=== PATIENT | female | born 1965 | race African-American/Black ===

== ENCOUNTER 2018-12-31 20:40 | Emergency (ER) | payer SELFPAY ==
[~2018-12-31] VITALS: Ht 175.3 cm; Wt 86.2 kg
--- NOTE | 2018-12-31 20:44 | NUR ---
ED Nurse Note: pt brought in by [facility] from home c/o allergic reaction, pt reports she ate some pineapple and drank aguirre juice and started feeling itching, swelling in throat, fingers and face, and feels like ants crawling in her head. EMS gave epi and benadryl 50mg on field, EMS reports pt was better for a little bit but started feeling worse again. Noted pt restless, AA&ox4, gcs=15, skin warm and dry, no hives nor rash noted, airway intact, resp even and unlabored on RA, sat 100%, noted tachypnea, -n/v/d. report given to Mireya.
[2018-12-31] MEDS ORDERED: Solu-MEDROL 125mg Inj IVP ONE (20:45)
[2018-12-31 20:47] VITALS: BP 168/83
--- NOTE | 2018-12-31 20:51 | Emergency Room Report ---
History of Present Illness General Chief Complaint: Allergic Reaction Source: Patient, EMS Present Illness HPI Patient presents with allergic reaction. This started 45 minutes ago. She had eaten some pineapple. She feels congestion and swelling in her hands. Then she started having itching throughout her body. Paramedics administered 1 mg of 1 1000 epinephrine IM and Benadryl 50 mg IV. The patient is had allergic reactions but not with onset this fast in the past. She has a little bit of throat swelling. She denies any dizziness or headache or scalp is itching also. Patient has a history of asthma. She denies any wheezing at this time. No fevers or chills. Patient is postmenopausal. 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 : 4 Para: 4 Reviewed Nursing Documentation: PMH: Agreed; PSxH: Agreed Nursing Documentation-PMH Past Medical History: No History, Except For Hx Asthma: Yes Review of Systems All Other Systems: negative except mentioned in HPI Physical Exam Vital Signs Date Time Temp Pulse Resp B/P (MAP) Pulse Ox O2 Delivery O2 Flow Rate FiO2 12/31/18 20:36 120 20 Room Air Sp02 EP Interpretation: reviewed, normal General Appearance: well appearing, GCS 15, mild distress - Anxious and itching Head: normocephalic, atraumatic Eyes: bilateral eye normal inspection, bilateral eye PERRL, bilateral eye EOMI ENT: hearing grossly normal, moist mucus membranes, other - Minimal swelling of the and soft palate Neck: supple, other - No stridor Respiratory: lungs clear, normal breath sounds Cardiovascular #1: regular rate, rhythm, no edema Cardiovascular #2: 2+ radial (R) Gastrointestinal: normal inspection, normal bowel sounds, non tender, no mass, non-distended Musculoskeletal: back normal, normal range of motion Neurologic: alert, oriented x3, grossly normal Psychiatric: anxious Skin: normal inspection, warm/dry, other - No [id number] reaction or erythroderm Medical Decision Making Diagnostic Impression: Primary Impression: Allergic reaction Qualified Codes: T78.40XA - Allergy, unspecified, initial encounter ER Course Patient presents with allergic reaction post receiving epinephrine and Benadryl in the field. Differential includes includes anaphylaxis, allergic reaction amongst others. Patient will be evaluated with EKG, chest x-ray and labs. The patient will receive Solu-Medrol and Pepcid IV and IV hydration. She'll be observed and possibly receive a second dose of epinephrine if needed. Repeat epi. Labs unremarkable. Still itching. Atarax given. Improved with atarax (and others). Patient stable for outpatient observation and treatment. Laboratory Tests Test 12/31/18 20:50 White Blood Count 11.4 K/UL (4.8-10.8) H Red Blood Count 4.33 M/UL (4.20-5.40) Hemoglobin 13.5 G/DL (12.0-16.0) Hematocrit 38.0 % (37.0-47.0) Mean Corpuscular Volume 88 FL (80-99) Mean Corpuscular Hemoglobin 31.1 PG (27.0-31.0) H Mean Corpuscular Hemoglobin Concent 35.4 G/DL (32.0-36.0) Red Cell Distribution Width 11.6 % (11.6-14.8) Platelet Count 358 K/UL (150-450) Mean Platelet Volume 4.4 FL (6.5-10.1) L Neutrophils (%) (Auto) 50.5 % (45.0-75.0) Lymphocytes (%) (Auto) 41.9 % (20.0-45.0) Monocytes (%) (Auto) 5.3 % (1.0-10.0) Eosinophils (%) (Auto) 1.3 % (0.0-3.0) Basophils (%) (Auto) 1.0 % (0.0-2.0) Prothrombin Time 10.3 SEC (9.30-11.50) Prothrombin Time INR 1.0 (0.9-1.1) PTT 25 SEC (23-33) Sodium Level 137 MMOL/L (136-145) Potassium Level 3.1 MMOL/L (3.5-5.1) L Chloride Level 100 MMOL/L (98-107) Carbon Dioxide Level 23 MMOL/L (21-32) Anion Gap 14 mmol/L (5-15) Blood Urea Nitrogen 9 mg/dL (7-18) Creatinine 1.0 MG/DL (0.55-1.30) Estimate Glomerular Filtration Rate 58.2 mL/min (>60) Glucose Level 217 MG/DL (74-106) H Calcium Level 9.3 MG/DL (8.5-10.1) Total Bilirubin 0.2 MG/DL (0.2-1.0) Aspartate Amino Transferase (AST) 15 U/L (15-37) Alanine Aminotransferase (ALT) 22 U/L (12-78) Alkaline Phosphatase 73 U/L (46-116) Total Creatine Kinase 80 U/L (26-308) Troponin I 0.005 ng/mL (0.000-0.056) Pro-B-Type Natriuretic Peptide 25 pg/mL (0-125) Total Protein 8.0 G/DL (6.4-8.2) Albumin 4.2 G/DL (3.4-5.0) Globulin 3.8 g/dL Albumin/Globulin Ratio 1.1 (1.0-2.7) EKG Diagnostic Results Rate: normal Rhythm: NSR ST Segments: no acute changes - RAD, P pulmonale Rhythm Strip Diag. Results EP Interpretation: yes Rhythm: NSR, no PVC's, no ectopy Chest X-Ray Diagnostic Results Chest X-Ray Diagnostic Results : Chest X-Ray Ordered: Yes # of Views/Limited/Complete: 1 View Indication: Other EP Interpretation: Yes Interpretation: no consolidation, no effusion, no pneumothorax Impression: No acute disease Electronically Signed by: Electronically signed by Paramjit Damon MD Last Vital Signs Date Time Temp Pulse Resp B/P (MAP) Pulse Ox O2 Delivery O2 Flow Rate FiO2 12/31/18 23:35 97.8 95 18 149/75 98 Room Air Status: improved Disposition: HOME, SELF-CARE Condition: Improved Scripts Prednisone* (PREDNISONE*) 20 Mg Tablet 40 MG ORAL DAILY, #10 TAB Prov: Paramjit Damon MD 12/31/18 Hydroxyzine Pamoate (VISTARIL) 25 Mg Capsule 25 MG PO Q6HR, #14 CAP Prov: Paramjit Damon MD 12/31/18 Epinephrine (Epipen 2-Kendell) 0.3 Mg/0.3 Ml Auto.injct 0.3 MG IM NEEDED, #1 EA 1 Refill Prov: Paramjit Damon MD 12/31/18 Paramjit Damon MD December 31, 2018 20:51
[2018-12-31 21:17] LABS: EOSINOPHILS % (AUTO) 1.3 % (0.0-3.0); HEMOGLOBIN 13.5 G/DL (12.0-16.0); LYMPHOCYTES % (AUTO) 41.9 % (20.0-45.0); MEAN CORPUSCULAR VOLUME 88 FL (80-99); MONOCYTES % (AUTO) 5.3 % (1.0-10.0); NEUTROPHILS % (AUTO) 50.5 % (45.0-75.0); PLATELET COUNT 358 K/UL (150-450); RED BLOOD COUNT 4.33 M/UL (4.20-5.40); RED CELL DISTRIBUTION WIDTH 11.6 % (11.6-14.8); WHITE BLOOD COUNT 11.4 K/UL (4.8-10.8)
[2018-12-31 21:22] LABS: ANION GAP 14 mmol/L (5-15); BLOOD UREA NITROGEN 9 mg/dL (7-18); CALCIUM 9.3 MG/DL (8.5-10.1); CARBON DIOXIDE 23 MMOL/L (21-32); CHLORIDE 100 MMOL/L (98-107); POTASSIUM 3.1 MMOL/L (3.5-5.1); SODIUM 137 MMOL/L (136-145)
[2018-12-31] MEDS ORDERED: EPINEPHrine 1mg/1ml Amp IM ONE (21:30)
[2018-12-31 21:33] LABS: ALANINE AMINOTRANSFERASE 22 U/L (12-78); ALBUMIN 4.2 G/DL (3.4-5.0); ALBUMIN/GLOBULIN RATIO 1.1 (1.0-2.7); ALKALINE PHOSPHATASE 73 U/L (46-116); ASPARTATE AMINO TRANSFERASE 15 U/L (15-37); BILIRUBIN,TOTAL 0.2 MG/DL (0.2-1.0); CREATINE KINASE 80 U/L (26-308)
--- NOTE | 2018-12-31 21:33 | NUR ---
ER Nurse Note: Pt a&ox4, VSS, no signs of further distress. O2 at 100% RA with clear lung sounds. All orders completed per ERMD orders. Pt recieved Epi .5mg; tolerated well. Pt scraching even when told not to. IV on LTAC infusing NS. All safety measures met; will continue to montior.
--- NOTE | 2018-12-31 21:36 | Diagnostic Imaging Report ---
EXAM: XR Chest, 1 View CLINICAL HISTORY: DYSPNEA TECHNIQUE: Frontal view of the chest. COMPARISON: none FINDINGS: Lungs: Unremarkable. No consolidation. Pleural space: Unremarkable. No pneumothorax. Heart: Unremarkable. No cardiomegaly. Mediastinum: Unremarkable. Bones/joints: Unremarkable. IMPRESSION: Normal chest x-ray.
[2018-12-31 22:27] VITALS: BP 146/65
[2018-12-31] MEDS ORDERED: HydrOXYzine tab 25mg tab ORAL ONE (22:30)
[2018-12-31] MEDS ORDERED: VISTARIL25 M1 PO (23:20)
[2018-12-31] MEDS ORDERED: PREDNISONE20 MG ORAL (23:20)
[2018-12-31] MEDS ORDERED: EPIPEN 2-P0.3 MG/0.3 IM (23:20)
--- NOTE | 2018-12-31 23:34 | NUR ---
ED Nurse Note: pt cleared to be d/c per ERMD, pt discharge and aftercare instruction provided w/ prescription, pt education done via discussion and handout, pt advised to follow up with pcp or return to ed if changes in condition, iv d/c and id band removed, pt verbalized understanding and agrees with plan, vss, ambulatory w/ steady gait, left w/ all belongings.
[2018-12-31 23:35] VITALS: BP 149/75
== END 2018-12-31 23:35 | disposition home or self-care (01) ==
LOC: EDBD 20:40 → EMR 21:10
DX: T78.40XA Allergy, unspecified, initial encounter (principal); Z88.6 Allergy status to analgesic agent; Z91.018 Allergy to other foods
CPT/HCPCS: 36415; 71045; 80053; 82550; 83880; 84484; 85025; 85610; 85730; 93005; 96361; 96372; 96374; 96375; 99284; J0171; J2930; S0028